=== PATIENT | male | born 1960 | race Caucasian/White ===

== ENCOUNTER 2021-08-14 10:59 | Inpatient (IN) | payer OTHER, MEDICARE ==
[2021-08-14] MEDS ORDERED: HEPARIN SODIUM 1,000 UN/ML (10ML VL) IV PRN (11:09)
[2021-08-14] MEDS ORDERED: fentaNYL (PF) 50 MCG/ML 2 ML AMP IVP STA (11:44)
[2021-08-14] MEDS: HEPARIN SOD,PORK IN 0.45% NACL 25,000 UNIT in 0.45% NACL 1 250ML.BAG IV SCH (11:59)
[2021-08-14 12:04] LABS: Basophils # (A) 0.1 k/uL (0-0.2); Basophils % (A) 1 %; Eosinophils # (A) 0.1 k/uL (0-0.7); Eosinophils % (A) 1 %; HCT 42.4 % (39.0-53.0); HGB 15.2 gm/dL (13.0-17.5); Lymphocytes % (A) 18 %; MCH 32.7 pg (25.0-35.0); MCHC 35.7 g/dL (31.0-37.0); MCV 91.4 fL (80.0-100.0); Mean Platelet Volume 8.8; Monocytes # (A) 0.6 k/uL (0-1.0); Monocytes % (A) 5 %; Neutrophils # (A) 8.3 k/uL (1.3-7.7); Neutrophils % (A) 74 %; Platelet Count 175 k/uL (150-450); RBC 4.64 m/uL (4.30-5.90); RDW 13.8 % (11.5-15.5); WBC 11.3 k/uL (3.8-10.6)
--- NOTE | 2021-08-14 12:11 | ED ---
Chest Pain HPI - General Chief Complaint: Chest Pain Stated Complaint: Chest Pain Time Seen by Provider: 08/14/21 11:00 Source: patient, RN/MD, EMS, RN notes reviewed Mode of arrival: EMS Limitations: no limitations - History of Present Illness Initial Comments: This is a 60-year-old male who presented to [facility] today with complaints of constipation and some atypical chest pain. During a workup EKG was found to be within normal limits however his troponin was elevated. He was diagnosed with a non-ST elevation myocardial infarction. He's had no further chest pain does have a history of chronic back pain. He was sent here for further evaluation and treatment. MD Complaint: chest pain - Related Data Allergies Allergy/AdvReac Type Severity Reaction Status Date / Time codeine Allergy Rash/Hives Verified 08/14/21 11:34 Morpholine Analogues Allergy Rash/Hives Verified 08/14/21 11:33 Review of Systems ROS Statement: Those systems with pertinent positive or pertinent negative responses have been documented in the HPI. ROS Other: All systems not noted in ROS Statement are negative. EKG Findings - EKG Results: EKG: interpreted by ERMD, sinus rhythm, normal axis, normal QRS, normal ST/T, no acute changes (Normal sinus rhythm of 69. Interval was 78 QRS duration 78 QT since QTC 46/[address]-T wave changes) Past Medical History Past Medical History: No Reported History History of Any Multi-Drug Resistant Organisms: None Reported Past Surgical History: Orthopedic Surgery Additional Past Surgical History / Comment(s): Back surgery On 1990 Past Psychological History: Anxiety, Bipolar, Depression, PTSD Smoking Status: Current some day smoker Past Alcohol Use History: Occasional Past Drug Use History: None Reported General Exam - General Exam Comments Initial Comments: This is a well-developed well-nourished awake alert oriented times 3 male Limitations: no limitations General appearance: alert, in no apparent distress Head exam: Present: atraumatic, normocephalic, normal inspection Eye exam: Present: normal appearance, PERRL, EOMI. Absent: scleral icterus, conjunctival injection, periorbital swelling ENT exam: Present: normal exam, mucous membranes moist Neck exam: Present: normal inspection. Absent: tenderness, meningismus, lymphadenopathy Respiratory exam: Present: normal lung sounds bilaterally. Absent: respiratory distress, wheezes, rales, rhonchi, stridor Cardiovascular Exam: Present: regular rate, normal rhythm, normal heart sounds. Absent: systolic murmur, diastolic murmur, rubs, gallop, clicks GI/Abdominal exam: Present: soft, normal bowel sounds. Absent: distended, tend erness, guarding, rebound, rigid Extremities exam: Present: normal inspection, full ROM, normal capillary refill. Absent: tenderness, pedal edema, joint swelling, calf tenderness Back exam: Present: normal inspection Neurological exam: Present: alert, oriented X3, CN II-XII intact Psychiatric exam: Present: normal affect, normal mood Skin exam: Present: warm, dry, intact, normal color. Absent: rash Course Vital Signs 08/14/21 11:05 Temperature 97.4 F L Pulse Rate 74 Respiratory 18 Rate Blood Pressure 140/85 O2 Sat by Pulse 95 Oximetry Chest Pain MDM - MDM Review the materials from the sending facility and did discuss case with Dr. Talbot patient will be admitted for inpatient evaluation and treatment cardiology consultation. Disposition Clinical Impression: Non-ST elevation myocardial infarction (NSTEMI) Disposition: ADMITTED IP TO THIS HOSP Condition: Stable Referrals: Nonstaff,Physician [Primary Care Provider] - 1-2 days
[2021-08-14] MEDS ORDERED: NITROGLYCERIN SL TABS 0.4 MG TAB SUBLINGUAL PRN (12:12)
[2021-08-14 12:44] LABS: Partial Thromboplastin Time 28.3 sec (22.0-30.0); Prothrombin Time 10.3 sec (9.0-12.0)
[2021-08-14] MEDS ORDERED: SUBOXONE PO PRN (14:06)
--- NOTE | 2021-08-14 14:11 | P.HPIM ---
History of Present Illness Patient is a pleasant 60-year-old male was a transfer from outside hospital for possibility of non-ST elevation microinfarction patient had first troponin which is minimally elevated to 0.2 at the other hospital. I do not have any troponin available from this facility yet. EKG here showed sinus rhythm without any acute ST-T wave changes EKG from outside hospital is not available. Patient chest x-ray did not show any pneumonia. Patient actually presented there with constipation patient didn't have any chest pain. Patient admits to epigastric burning sensation about a week ago which was relieved by Tums patient denied any fever chills any cough. Patient admits to some shortness of breath does have smoking history smokes about half a pack a day which she is trying to quit. She and had creatinine of around 1.1 at the hospital REVIEW OF SYSTEMS: CONSTITUTIONAL: No fever, no malaise, no fatigue. HEENT: No recent visual problems or hearing problems. Denied any sore throat. CARDIOVASCULAR: No chest pain, orthopnea, PND, no palpitations, no syncope. PULMONARY: no cough, no hemoptysis. GASTROINTESTINAL: No diarrhea, no nausea, no vomiting, no abdominal pain. NEUROLOGICAL: No headaches, no weakness, no numbness. HEMATOLOGICAL: Denies any bleeding or petechiae. GENITOURINARY: Denies any burning micturition, frequency, or urgency. MUSCULOSKELETAL/RHEUMATOLOGICAL: Denies any joint pain, swelling, or any muscle pain. ENDOCRINE: Denies any polyuria or polydipsia. The rest of the 14-point review of systems is negative. PHYSICAL EXAMINATION: GENERAL: The patient is alert and oriented x3, not in any acute distress. Well developed, well nourished. HEENT: Pupils are round and equally reacting to light. EOMI. No scleral icterus. No conjunctival pallor. Normocephalic, atraumatic. No pharyngeal erythema. No thyromegaly. CARDIOVASCULAR: S1 and S2 present. No murmurs, rubs, or gallops. PULMONARY: Chest is clear to auscultation, no wheezing or crackles. ABDOMEN: Soft, nontender, nondistended, normoactive bowel sounds. No palpable organomegaly. MUSCULOSKELETAL: No joint swelling or deformity. EXTREMITIES: No cyanosis, clubbing, or pedal edema. NEUROLOGICAL: Gross neurological examination did not reveal any focal deficits. SKIN: No rashes. Assessment and plan -Mildly elevated troponin: Awaiting second set of troponin EKG did not show any significant abnormality patient doesn't have any chest pain cardiology was consulted and patient is presently on IV heparin. Patient does have smoking history -Constipation will treat with MiraLAX and senna -Nicotine abuse: Counseling was provided -Depression -obesity DVT prophylaxis: Patient is presently on IV heparin Past Medical History Past Medical History: No Reported History History of Any Multi-Drug Resistant Organisms: None Reported Past Surgical History: Orthopedic Surgery Additional Past Surgical History / Comment(s): Back surgery On 1990 Past Psychological History: Anxiety, Bipolar, Depression, PTSD Smoking Status: Current some day smoker Past Alcohol Use History: Occasional Past Drug Use History: None Reported Medications and Allergies Home Medications Medication Instructions Recorded Confirmed Type Ascorbic Acid [Vitamin C] 1,000 mg PO DAILY 08/14/21 08/14/21 History Buprenorphine HCl/Naloxone HCl 1 tab SL QID PRN 08/14/21 08/14/21 History [Buprenorphine-Nalox 8-2 mg Tab] Cholecalciferol (Vitamin D3) 125 mcg PO MOTUWETH 08/14/21 08/14/21 History [Vitamin D3 (125 MCG = 5,000 IU)] [place]-3 Fatty Acids/Fish Oil [Fish 1 cap PO DAILY 08/14/21 08/14/21 History Oil 1,000 mg Softgel] QUEtiapine [SEROquel] 400 mg PO HS 08/14/21 08/14/21 History Venlafaxine HCl [Effexor XR] 150 mg PO DAILY 08/14/21 08/14/21 History Allergies Allergy/AdvReac Type Severity Reaction Status Date / Time codeine Allergy Rash/Hives/Shortness Verified 08/14/21 13:41 of Breath Morpholine Analogues Allergy Rash/Hives/Shortness Verified 08/14/21 13:41 of Breath Physical Exam Vitals: Vital Signs Temp Pulse Resp BP Pulse Ox 08/14/21 13:13 65 18 157/83 95 08/14/21 11:05 97.4 F L 74 18 140/85 95 Intake and Output 08/13/21 08/14/21 08/14/21 22:59 06:59 14:59 Other: Weight 118.841 kg Results CBC & Chem 7: 08/14/21 11:45 Labs: Abnormal Lab Results - Last 24 Hours (Table) 08/14/21 Range/Units 11:45 WBC 11.3 H (3.8-10.6) k/uL Neutrophils # 8.3 H (1.3-7.7) k/uL
[2021-08-14] MEDS: SODIUM CHLORIDE 0.9% 1,000 ML IV SCH (14:39)
[2021-08-14] MEDS: SENNOSIDES 8.6 MG TAB PO SCH (14:39)
[2021-08-14] MEDS: polyethylene glycoL 3350 17 GM POWD.PACK PO PRN (18:42)
[2021-08-14] MEDS ORDERED: ALPRAZolam 0.25 MG TAB PO STA (19:02)
[2021-08-14] MEDS: NICOTINE 14MG/24HR PATCH TRANSDERM SCH (19:11)
[2021-08-14] MEDS ORDERED: FAMOTIDINE 20 MG/2 ML VIAL IV SCH (21:00)
[2021-08-14] MEDS ORDERED: ALBUTEROL NEBULIZED 2.5 MG/3 ML INHALATION PRN (23:32)
[2021-08-14] MEDS ORDERED: HYDROmorphone 1 MG/ML 1 ML SYRINGE IVP STA (23:32)
[2021-08-14] MEDS: QUEtiapine 200 MG TAB PO SCH (23:37)
[2021-08-15 03:35] LABS: Basophils # (A) 0.1 k/uL (0-0.2); Basophils % (A) 1 %; Eosinophils # (A) 0.3 k/uL (0-0.7); Eosinophils % (A) 4 %; HCT 41.6 % (39.0-53.0); HGB 14.6 gm/dL (13.0-17.5); Lymphocytes # (A) 2.7 k/uL (1.0-4.8); Lymphocytes % (A) 34 %; MCH 32.2 pg (25.0-35.0); MCHC 34.9 g/dL (31.0-37.0); MCV 92.1 fL (80.0-100.0); Mean Platelet Volume 8.1; Monocytes # (A) 0.4 k/uL (0-1.0); Monocytes % (A) 5 %; Neutrophils # (A) 4.3 k/uL (1.3-7.7); Neutrophils % (A) 54 %; Platelet Count 158 k/uL (150-450); RBC 4.52 m/uL (4.30-5.90); RDW 13.6 % (11.5-15.5)
[2021-08-15] MEDS: HEPARIN SOD,PORK IN 0.45% NACL 25,000 UNIT in 0.45% NACL 1 250ML.BAG IV SCH (04:25)
[2021-08-15 05:04] LABS: Prothrombin Time 10.7 sec (9.0-12.0)
[2021-08-15] MEDS ORDERED: NITROGLYCERIN SL TABS 0.4 MG TAB SUBLINGUAL PRN (08:40)
[2021-08-15] MEDS ORDERED: ALPRAZolam 0.5 MG TAB PO PRN (08:40)
[2021-08-15] MEDS ORDERED: ASPIRIN 81 MG PO SCH (09:00)
[2021-08-15] MEDS ORDERED: ASPIRIN 325 MG TAB PO SCH (09:00)
[2021-08-15] MEDS: NITROGLYCERIN OINT 1 INCH/GM PACKET TOPICAL SCH ×3 (09:40→23:45)
[2021-08-15] MEDS: polyethylene glycoL 3350 17 GM POWD.PACK PO PRN (09:40)
[2021-08-15] MEDS: NICOTINE 14MG/24HR PATCH TRANSDERM SCH (09:41)
[2021-08-15] MEDS: VENLAFAXINE HCL ER 150 MG CAP PO SCH (09:41)
[2021-08-15] MEDS: FAMOTIDINE 20 MG TAB PO SCH ×2 (09:41→20:53)
[2021-08-15] MEDS: SENNOSIDES 8.6 MG TAB PO SCH (09:41)
[2021-08-15] MEDS: FUROSEMIDE 10 MG/ML 4 ML VIAL IV SCH ×2 (09:41→20:53)
[2021-08-15 10:13] LABS: Chol/HDL Ratio 4.47 Ratio; HDL Cholesterol 40.5 mg/dL (40.00-60.00); LDL Cholesterol,Calculated 108.1 mg/dL (0.0-131.0); VLDL Calculation 32.4 mg/dL (5.00-40.00)
--- NOTE | 2021-08-15 10:14 | ECHOF ---
Referral Reason:NSTEMI MEASUREMENTS -------- HEIGHT: 162.6 cm WEIGHT: 118.8 kg BP: RVIDd: 3.0 cm (< 3.3) IVSd: 0.9 cm (0.6 - 1.1) LVIDd: 5.2 cm (3.9 - 5.3) LVPWd: 1.4 cm (0.6 - 1.1) IVSs: 1.8 cm LVIDs: 3.5 cm LVPWs: 1.7 cm LA Diam: 3.7 cm (2.7 - 3.8) LAESV Index (A-L): 28.34 ml/m Ao Diam: 3.1 cm (2.0 - 3.7) AV Cusp: 2.0 cm (1.5 - 2.6) LA Diam: 4.1 cm (2.7 - 3.8) MV EXCURSION: 19.436 mm (> 18.000) MV EF SLOPE: 81 mm/s (70 - 150) EPSS: 0.8 cm MV E Campbell: 0.65 m/s MV DecT: 195 ms MV A Campbell: 0.67 m/s MV E/A Ratio: 0.97 RAP: 5.00 mmHg RVSP: 16.07 mmHg FINDINGS -------- Sinus rhythm. Morbid Obesity This was a techncally difficult study with suboptimal views, , Definity utilized for enhancement of images. The left ventricular size is normal. Overall left ventricular systolic function is low-normal with, an EF between 50 - 55 %. The right ventricle is normal in size. The left atrial size is normal. The right atrial size is normal. There is mild aortic valve sclerosis. There is no evidence of aortic regurgitation. Mild mitral regurgitation is present. Mild tricuspid regurgitation present. Right ventricular systolic pressure is normal at < 35 mmHg. The pulmonic valve was not well visualized. CONCLUSIONS -------- 1. Morbid Obesity 2. This was a techncally difficult study with suboptimal views, , Definity utilized for enhancement o f images. 3. The left ventricular size is normal. 4. Overall left ventricular systolic function is low-normal with, an EF between 50 - 55 %. 5. The right ventricle is normal in size. 6. The left atrial size is normal. 7. The right atrial size is normal. 8. There is mild aortic valve sclerosis. 9. Mild mitral regurgitation is present. 10. Mild tricuspid regurgitation present. 11. The pulmonic valve was not well visualized. PARKING CASHIER: Iram Gregg RDCS
--- NOTE | 2021-08-15 12:10 | P.CRDCN ---
History of Present Illness Consult date: 08/15/21 History of present illness: HISTORY OF PRESENT ILLNESS: This is a 60-year-old male with a past medical history significant for COPD and nicotine dependence. Patient also reports a family history of coronary artery disease. 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 We have been asked to see the patient in consultation for abnormal troponins. Patient examined at the bedside. Patient initially presented to the hospital with a chief complaint of constipation. Patient was found to have abnormal troponins. The patient does repair port having some burning in his chest last week. He states the brain sensation would last 2030 minutes and then go away. He states the pain was relieved with aspirin. At the time of examination this morning, he denies any chest pain or pressure. The patient does report shortness of breath when he lays flat in bed. The patient states overnight he woke up in the middle of the night gasping for air. He states this has been going on for the past couple weeks. EKG reveals sinus mechanism with no signs of acute ischemia Laboratory data: WBC 8.0. Hemoglobin 14.6. Platelet count 158. ProBNP 310. T roponin 1.160. 1.570. 0.884. Echocardiogram completed reveals ejection fraction 50-55%, mild mitral regurgitation, and mild tricuspid regurgitation Home cardiac medications include: none REVIEW OF SYSTEMS: At the time of my exam: CONSTITUTIONAL: Denies fever or chills. HEENT: Denies blurred vision, vision changes, or eye pain. Denies hemoptysis CARDIOVASCULAR: Denies chest pain. Reports orthopnea. Reports PND. Denies palpitations RESPIRATORY: shortness of breath. GASTROINTESTINAL: Denies abdominal pain. Denies nausea or vomiting. HEMATOLOGIC: Denies bleeding disorders. GENITOURINARY: Denies any blood in urine. SKIN: Denies pruitis. Denies rash. PHYSICAL EXAM: VITAL SIGNS: Reviewed. GENERAL: Well-developed in no acute distress. HEENT: Head is normocephalic. Pupils are equal, round. Sclerae anicteric. Mucous membranes of the mouth are moist. Neck supple. No JVD or thyromegaly LUNGS: Respirations even and unlabored. Lungs diminished with bibasilar rales HEART: Regular rate and rhythm. S1 and S2 heard. ABDOMEN: Soft. Nondistended. Nontender. EXTREMITIES: Normal range of motion. No clubbing or cyanosis. Peripheral pul ses intact. No lower extremity edema NEUROLOGIC: Awake and alert. Oriented x 3. ASSESSMENT: Constipation Shortness of breath Non-STEMI Acute diastolic congestive heart failure COPD Nicotine dependence Family history of coronary artery disease PLAN: Add aspirin 81 mg daily, Lipitor 80 mg daily, and metoprolol 25 mg twice a day Continue IV heparin Begin IV Lasix 40 mg every 12 hours Add Nitropaste half an inch every 8 hours Monitor kidney function Smoking cessation recommended Nothing by mouth at midnight Patient to undergo cardiac catheterization tomorrow with Dr. Hernandez Further recommendations pending patient's course Nurse practitioner note has been reviewed by physician. Signing provider agrees with the documented findings, assessment, and plan of care. Past Medical History Past Medical History: No Reported History History of Any Multi-Drug Resistant Organisms: None Reported Past Surgical History: Orthopedic Surgery Additional Past Surgical History / Comment(s): Back surgery On 1990 Past Psychological History: Anxiety, Bipolar, Depression, PTSD Smoking Status: Current every day smoker Past Alcohol Use History: Occasional Past Drug Use History: None Reported Medications and Allergies Home Medications Medication Instructions Recorded Confirmed Type Ascorbic Acid [Vitamin C] 1,000 mg PO DAILY 08/14/21 08/14/21 History Buprenorphine HCl/Naloxone HCl 1 tab SL QID PRN 08/14/21 08/14/21 History [Buprenorphine-Nalox 8-2 mg Tab] Cholecalciferol (Vitamin D3) 125 mcg PO MOTUWETH 08/14/21 08/14/21 History [Vitamin D3 (125 MCG = 5,000 IU)] [place]-3 Fatty Acids/Fish Oil [Fish 1 cap PO DAILY 08/14/21 08/14/21 History Oil 1,000 mg Softgel] QUEtiapine [SEROquel] 400 mg PO HS 08/14/21 08/14/21 History Venlafaxine HCl [Effexor XR] 150 mg PO DAILY 08/14/21 08/14/21 History Allergies Allergy/AdvReac Type Severity Reaction Status Date / Time codeine Allergy Rash/Hives/Shortness Verified 08/14/21 13:41 of Breath Morpholine Analogues Allergy Rash/Hives/Shortness Verified 08/14/21 13:41 of Breath Physical Exam Vitals: Vital Signs Temp Pulse Pulse Resp BP BP Pulse Ox 08/15/21 07:53 97.8 F 79 16 103/79 97 08/15/21 04:00 84 18 146/82 96 08/14/21 21:30 97.8 F 83 82 18 155/78 154/84 94 L 08/14/21 20:05 67 18 96 08/14/21 18:00 72 18 155/70 95 08/14/21 17:00 72 18 95 08/14/21 14:40 72 18 95 08/14/21 13:13 65 18 157/83 95 08/14/21 11:05 97.4 F L 74 18 140/85 95 Intake and Output 08/14/21 08/15/21 08/15/21 22:59 06:59 14:59 Intake Total 558 123.963 Balance 558 123.963 Intake: Intake, IV Titration 73 123.963 Amount Heparin Sod,Pork in 0.45% 73 123.963 NaCl 25,000 unit In 0.45 % NaCl 1 250ml.bag @ 8. 415 UNITS/KG/HR 10 mls/hr IV .Q24H [facility] Rx#: [id number] Oral 485 Other: Voiding Method Toilet Toilet Urinal Urinal # Voids 2 Weight 118.841 kg 117 kg Results 08/15/21 03:00 Cardiac Enzymes 08/14/21 08/14/21 Range/Units 14:03 16:52 Troponin I 1.160 H* 1.570 H* (0.000-0.034) ng/mL Coagulation 08/14/21 08/14/21 08/15/21 Range/Units 11:45 16:52 03:00 PT 10.3 10.7 (9.0-12.0) sec APTT 28.3 26.1 (22.0-30.0) sec 08/15/21 Range/Units 03:00 PT (9.0-12.0) sec APTT 34.0 H (22.0-30.0) sec CBC 08/14/21 08/15/21 Range/Units 11:45 03:00 WBC 11.3 H 8.0 (3.8-10.6) k/uL RBC 4.64 4.52 (4.30-5.90) m/uL Hgb 15.2 14.6 (13.0-17.5) gm/dL Hct 42.4 41.6 (39.0-53.0) % Plt Count 175 158 (150-450) k/uL Current Medications Generic Name Dose Route Start Last Admin Trade Name Freq PRN Reason Stop Dose Admin Albuterol Sulfate 2.5 mg 08/14/21 23:32 Albuterol Nebulized 2.5 Mg/3 Ml INHALATION RT-TID PRN Shortness Of Breath Or Wheezing Aspirin 325 mg 08/15/21 09:00 Aspirin 325 Mg Tab PO DAILY [facility] Famotidine 20 mg 08/15/21 09:00 Famotidine 20 Mg Tab PO Q12HR [facility] Heparin Sodium (Porcine) 0 unit 08/14/21 11:09 08/15/21 04:23 Heparin Sodium 1,000 Un/Ml (10ml Vl) IV 4,000 unit PER PROTOCOL PRN Administration Low PTT Protocol Heparin Sodium/Sodium Chloride 250 mls @ 10 mls/hr 08/14/21 11:15 08/15/21 04:25 25,000 unit/ Sodium Chloride IV 14.415 units/kg/hr .Q24H [facility] 17.131 mls/hr Administration Protocol 8.415 UNITS/KG/HR Sodium Chloride 1,000 mls @ 20 mls/hr 08/14/21 12:15 08/14/21 14:39 Saline 0.9% IV 20 mls/hr .Q24H [facility] Administration Nicotine 1 patch 08/14/21 19:15 08/14/21 19:11 Nicotine 14mg/24hr Patch TRANSDERM 1 patch DAILY [facility] Administration Nitroglycerin 0.4 mg 08/14/21 12:12 Nitroglycerin Sl Tabs 0.4 Mg Tab SUBLINGUAL Q5M PRN Chest Pain Suboxone ( 1 tab 08/14/21 14:06 Buprenorphine-Nalox PO 8-2 Mg Tab) QID PRN Pain Polyethylene Glycol 17 gm 08/14/21 14:06 08/14/21 18:42 Polyethylene Glycol 3350 17 Gm Powd.Pack PO 17 gm DAILY PRN Administration Constipation Quetiapine Fumarate 400 mg 08/14/21 21:00 08/14/21 23:37 Quetiapine 200 Mg Tab PO 400 mg HS [facility] Administration Senna 8.6 mg 08/14/21 14:15 08/14/21 14:39 Sennosides 8.6 Mg Tab PO 8.6 mg DAILY [facility] Administration Venlafaxine HCl 150 mg 08/15/21 09:00 Venlafaxine Hcl Er 150 Mg Cap PO DAILY [facility] Intake and Output 08/14/21 08/15/21 08/15/21 22:59 06:59 14:59 Intake Total 558 123.963 Balance 558 123.963 Intake: Intake, IV Titration 73 123.963 Amount Heparin Sod,Pork in 0.45% 73 123.963 NaCl 25,000 unit In 0.45 % NaCl 1 250ml.bag @ 8. 415 UNITS/KG/HR 10 mls/hr IV .Q24H [facility] Rx#: [id number] Oral 485 Other: Voiding Method Toilet Toilet Urinal Urinal # Voids 2 Weight 118.841 kg 117 kg 08/15/21 03:00
[2021-08-15] MEDS: SODIUM CHLORIDE 0.9% 1,000 ML IV SCH (12:11)
[2021-08-15] MEDS: bisacodyL 10 MG SUPP RECTAL STA ×2 (14:01→20:37)
[2021-08-15] MEDS: HYDROmorphone 0.5 MG/0.5 ML SYRINGE IVP PRN ×2 (14:01→20:52)
[2021-08-15 14:41] LABS: Calcium 9.4 mg/dL (8.4-10.2)
[2021-08-15 14:50] LABS: Potassium 5.3 mmol/L (3.5-5.1)
[2021-08-15] MEDS ORDERED: VERAPAMIL 2.5 MG/ML 2 ML AMP ONE (15:19)
[2021-08-15] MEDS ORDERED: LIDOCAINE 1% INJ 10MG/ML (20 ML MDV) ONE (15:19)
--- NOTE | 2021-08-15 15:20 | P.PN ---
Subjective Progress Note Date: 08/15/21 Patient is a pleasant 60-year-old male was a transfer from outside hospital for possibility of non-ST elevation microinfarction patient had first troponin which is minimally elevated to 0.2 at the other hospital. I do not have any troponin available from this facility yet. EKG here showed sinus rhythm without any acute ST-T wave changes EKG from outside hospital is not available. Patient chest x-ray did not show any pneumonia. Patient actually presented there with constipation patient didn't have any chest pain. Patient admits to epigastric burning sensation about a week ago which was relieved by Tums patient denied any fever chills any cough. Patient admits to some shortness of breath does have smoking history smokes about half a pack a day which she is trying to quit. She and had creatinine of around 1.1 at the hospital 08/15/2021 Patient is evaluated today sitting up in the chair. He currently denies any chest pain, chest pressure or palpitations. Has been complaining of some con stipation. He states that he did have a small bowel movement however is requesting additional locations for constipation onset of MiraLAX and. We will order a suppository. Patient does take Suboxone for chronic back pain, he does not have any here, he is requesting pain medication. Troponins were elevated, 1.160, 1.570, 0.84. Patient is scheduled for cardiac catheterization tomorrow. Potassium today is 5.3, CBC is unremarkable. Patient is on heparin drip. Vital signs include blood pressure 115/70, he is afebrile, on room air, and heart rate is 75 normal sinus rhythm. Echocardiogram shows an EF of 50-55% with mild mitral regurgitation and mild tricuspid regurgitation. ROS Constitutional: Denied any fatigue denied any fever. Cardio vascular: denied any chest pain, palpitations Gastrointestinal denied any nausea vomiting, reports constipation Pulmonary: Denied cough, reports shortness of breath with exertion Neurologic denied any new focal deficits All inpatient medications were reviewed and appropriate changes in these medications as dictated in the interval history and assessment and plan. PHYSICAL EXAMINATION: GENERAL: The patient is alert and oriented x3, not in any acute distress. Well developed, well nourished. HEENT: Pupils are round and equally reacting to light. EOMI. No scleral icterus. No conjunctival pallor. Normocephalic, atraumatic. No pharyngeal erythema. No thyromegaly. CARDIOVASCULAR: S1 and S2 present. No murmurs, rubs, or gallops. PULMONARY: Chest is clear to auscultation, no wheezing or crackles. ABDOMEN: Soft, nontender, nondistended, normoactive bowel sounds. No palpable organomegaly. MUSCULOSKELETAL: No joint swelling or deformity. EXTREMITIES: No cyanosis, clubbing, or pedal edema. NEUROLOGICAL: Gross neurological examination did not reveal any focal deficits. SKIN: No rashes. Assessment and plan -Non-STEMI, elevated troponins, heart cath tomorrow on IV heparin -Acute diastolic congestive heart failure, EF 50-55%, on IV lasix -Shortness of breath -Constipation will treat with MiraLAX and senna, one-time suppository -Nicotine abuse: Counseling was provided -Depression -obesity DVT prophylaxis: Patient is presently on IV heparin Cardiac catheterization tomorrow, continue on IV Lasix Objective - Vital Signs Vital signs: Vital Signs Temp 98.4 F 08/15/21 12:11 Pulse 75 08/15/21 12:11 Resp 17 08/15/21 12:11 BP 115/70 08/15/21 12:11 Pulse Ox 97 08/15/21 12:12 Intake & Output 08/14/21 08/15/21 08/15/21 18:59 06:59 18:59 Intake Total 681.963 240 Balance 681.963 240 Weight 118.841 kg 117 kg Intake: Intake, IV Titration 196.963 Amount Heparin Sod,Pork in 0.45% 196.963 NaCl 25,000 unit In 0.45 % NaCl 1 250ml.bag @ 8. 415 UNITS/KG/HR 10 mls/hr IV .Q24H [facility] Rx#: [id number] Oral 485 240 Other: Voiding Method Toilet Toilet Urinal Urinal # Voids 2 - Labs CBC & Chem 7: 08/15/21 03:00 08/15/21 08:47 Labs: Abnormal Lab Results - Last 24 Hours (Table) 08/14/21 08/14/21 08/15/21 Range/Units 14:03 16:52 03:00 APTT (22.0-30.0) sec Troponin I 1.160 H* 1.570 H* (0.000-0.034) ng/mL Triglycerides 162.00 H (0.00-149.00) mg/dL 08/15/21 08/15/21 08/15/21 Range/Units 03:00 08:47 08:47 APTT 34.0 H 57.8 H (22.0-30.0) sec Troponin I 0.884 H* (0.000-0.034) ng/mL Triglycerides (0.00-149.00) mg/dL Assessment and Plan Time with Patient: Greater than 30
[2021-08-15] MEDS ORDERED: IV FLUID CONTINUATION 1,000 ML IV ONE (15:33)
[2021-08-15] MEDS ORDERED: fentaNYL (PF) 50 MCG/ML 2 ML AMP ONE (15:41)
[2021-08-15] MEDS: fentaNYL (PF) 50 MCG/ML 2 ML AMP IVP ONE ×3 (15:54→16:05)
[2021-08-15] MEDS ORDERED: MIDAZOLAM 2 MG/2 ML VIAL IVP ONE ×2 (15:54→16:15)
[2021-08-15] MEDS ORDERED: LIDOCAINE 1% INJ 10MG/ML (20 ML MDV) SQ ONE (15:56)
[2021-08-15] MEDS ORDERED: HEPARIN SODIUM 1,000 UN/ML (10ML VL) ONE (15:59)
[2021-08-15] MEDS ORDERED: VERAPAMIL SYRINGE (5 MG/10 ML) INTRAARTER ONE (16:00)
[2021-08-15] MEDS: HEPARIN SODIUM 1,000 UN/ML (10ML VL) IVP ONE ×3 (16:03→16:30)
[2021-08-15] MEDS ORDERED: PRASUGREL 10 MG TAB ONE (16:08)
[2021-08-15] MEDS ORDERED: PRASUGREL 10 MG TAB PO ONE (16:16)
[2021-08-15] MEDS ORDERED: IOPAMIDOL-370 125ML BTL INJ ONE (16:30)
[2021-08-15] MEDS ORDERED: IOPAMIDOL-370 100ML BTL INJ ONE (16:30)
[2021-08-15] MEDS: ALPRAZolam 0.25 MG TAB PO PRN (19:12)
--- NOTE | 2021-08-15 20:24 | P.PRCINT ---
Percutaneous Coronary Int. - Percutaneous Coronary Intervention Percutaneous Coronary Intervention: PROCEDURES PERFORMED: Left heart catheterization, bilateral coronary angiography, PCI proximal circumflex with a 3.5 x 15mm Xience KASSIE INDICATION: NSTEMI HISTORY: Patient is a pleasant 60-year-old male with a history of tobacco abuse, hypertension, hyperlipidemia who presented with chest pain and was found to have non-STEMI. Heart catheterization was recommended. CONSENT:I have discussed the risks, benefits and alternative therapies for the above-mentioned procedure and for both sedation/analgesia as well as necessary blood product administration, if indicated, as they pertain to this patient. The patient has indicated understanding and acceptance of the risks and procedures discussed. PROCEDURE: After the risks, benefits and alternatives of the above mentioned procedure explained in detail with the patient, informed consent was obtained. Patient was taken to the catheterization lab and prepped and draped in usual fashion. 1% lidocaine was used to anesthetize the right radial artery. A 6- Kazakh sheath was placed in the right radial artery using modified Seldinger technique. Left coronary angiography was performed with a 5-Kazakh JL 3.5 catheter and right coronary angiography was performed with a 5-Kazakh JR5 catheter in various views. A 5-Kazakh FR5 catheter was inserted into the left ventricle and pressure measurements were obtained. The decision was made to perform PCI of the circumflex. A 6-Kazakh CLS 3.0 guide was used to engage the left main. A 0.014 BMW wire was advanced until distal circumflex. A 3.0 x 12 mm balloon was used to predilate the circumflex. Next a 3.5 x 15 mm Xience KASSIE was deployed. Preintervention there was RHIANNA 3 flow and 90% stenosis. Postintervention there was 0% stenosis and RHIANNA-3 flow. The wire was removed and final angiograms were performed. The right radial sheath was removed and a TR band was placed with hemostasis achieved. The patient tolerated the procedure well. Patient was transported back to the post catheterization holding area in stable condition. Conscious Sedation: Patient was monitored under the direct supervision of vision of myself for conscious sedation using Versed and fentanyl for a total duration of 29 minutes HEMODYNAMICS: Ao: 136/73 LVEDP: 110/1, LVEDP 10mmHg SELECTIVE CORONARY ARTERIOGRAPHY: LEFT MAIN: The left main is a large caliber vessel which trifurcates into the LAD, ramus and circumflex. There is no significant stenosis. LEFT ANTERIOR DESCENDING CORONARY ARTERY: LAD is a large caliber vessel which wraps around to the apex. There is a mid LAD 50% stenosis just proximal to a moderate caliber diagonal 1 branch and otherwise has mild luminal irregularities. RAMUS INTERMEDIUS: The ramus is a moderate caliber vessel with mild luminal irregularities. LEFT CIRCUMFLEX CORONARY ARTERY: Left circumflex is a large caliber vessel with a proximal to mid 90% stenosis. RIGHT CORONARY ARTERY: The right coronary artery is a large caliber vessel which gives off a PDA and PLV branch and is the dominant vessel. There is a proximal 30% RCA stenosis and a mid 20% RCA stenosis. FINAL IMPRESSION: 1. CAD as described above with 90% circumflex stenosis, 50% mid LAD stenosis and otherwise mild disease 2. S/p PCI proximal to mid circumflex with a 3.5 x 15mm Xience KASSIE 3. Normal left sided filling pressures PLAN: 1. Aggressive risk factor modification per most recent ACC/AHA guidelines. 2. Continue dual antiplatelets for 12 months 3. Would treat LAD medically and does not appear angiographically significant.
[2021-08-15] MEDS ORDERED: RX INFO: IV CONTRAST WAS GIVEN 1 EACH MISC MISCELLANE PRN (20:42)
[2021-08-15] MEDS ORDERED: ZOLPIDEM 5 MG TAB PO PRN (20:42)
[2021-08-15] MEDS ORDERED: ATROPINE SULFATE 0.1 MG/ML 10ML SYRINGE IV PRN (20:42)
[2021-08-15] MEDS ORDERED: MAG HYDROX/AL HYDROX/SIMETH 30 ML CUP PO PRN (20:42)
[2021-08-15] MEDS ORDERED: SODIUM CHLORIDE 0.9% 1,000 ML IV SCH (20:45)
[2021-08-15] MEDS: SODIUM CHLORIDE 0.9% 1,000 ML in EMPTY BAG 1 BAG IV SCH ×2 (20:52→23:46)
[2021-08-15] MEDS: ATORVASTATIN 80 MG TAB PO SCH (20:53)
[2021-08-15] MEDS: METOPROLOL TARTRATE 25 MG TAB PO SCH (20:53)
[2021-08-15] MEDS: QUEtiapine 200 MG TAB PO SCH (20:54)
[2021-08-16] MEDS ORDERED: ASPIRIN 325 MG TAB PO ONE (07:00)
[2021-08-16] MEDS ORDERED: HEPARIN SODIUM,PORCINE 10,000 UNIT in SODIUM CHLORIDE 0.9% 1,000 ML IRRIGATION PRN (07:00)
[2021-08-16] MEDS ORDERED: ATORVASTATIN 80 MG TAB PO ONE (07:00)
[2021-08-16] MEDS ORDERED: HEPARIN SODIUM,PORCINE 2,500 UNIT in SODIUM CHLORIDE 0.9% 250 ML IRRIGATION PRN (07:00)
[2021-08-16] MEDS ORDERED: PRASUGREL 10 MG TAB PO SCH (09:00)
[2021-08-16] MEDS ORDERED: ASPIRIN 81 MG PO SCH (09:00)
[2021-08-16 09:46] VITALS: TEMP 98.5
[2021-08-16] MEDS: NICOTINE 14MG/24HR PATCH TRANSDERM SCH (09:51)
[2021-08-16] MEDS: FAMOTIDINE 20 MG TAB PO SCH (09:51)
[2021-08-16] MEDS: NITROGLYCERIN OINT 1 INCH/GM PACKET TOPICAL SCH ×2 (09:51→15:27)
[2021-08-16] MEDS: HYDROmorphone 0.5 MG/0.5 ML SYRINGE IVP PRN (09:52)
[2021-08-16] MEDS: FUROSEMIDE 10 MG/ML 4 ML VIAL IV SCH (09:58)
[2021-08-16] MEDS: SENNOSIDES 8.6 MG TAB PO SCH (09:59)
[2021-08-16] MEDS: METOPROLOL TARTRATE 25 MG TAB PO SCH ×2 (09:59→18:50)
[2021-08-16] MEDS: VENLAFAXINE HCL ER 150 MG CAP PO SCH (09:59)
[2021-08-16 11:10] LABS: Calcium 9.2 mg/dL (8.4-10.2); Potassium 4.3 mmol/L (3.5-5.1)
[2021-08-16 12:10] VITALS: BMI 35.6
[2021-08-16] MEDS: SODIUM CHLORIDE 0.9% 1,000 ML IV SCH (12:29)
[2021-08-16] MEDS: HEPARIN SOD,PORK IN 0.45% NACL 25,000 UNIT in 0.45% NACL 1 250ML.BAG IV SCH (12:29)
[2021-08-16] MEDS: ALPRAZolam 0.25 MG TAB PO PRN (13:23)
[2021-08-16] MEDS: SODIUM CHLORIDE 0.9% 1,000 ML in EMPTY BAG 1 BAG IV SCH (15:27)
[2021-08-16 15:37] VITALS: BP 131/78; PULSE 85; RESP 18
--- NOTE | 2021-08-16 17:58 | P.PN ---
Subjective This is a 60-year-old male with a past medical history significant for COPD and nicotine dependence. Patient also reports a family history of coronary artery disease. Patient does not follow with a hospital clerk.. We have been asked to see the patient in consultation for abnormal troponins. Patient examined at the bedside. Patient initially presented to the hospital with a chief complaint of constipation. Patient was found to have abnormal troponins. The patient does repair port having some burning in his chest last week. He states the brain sensation would last 2030 minutes and then go away. He states the pain was relieved with aspirin. At the time of examination this morning, he denies any chest pain or pressure. The patient does report shortness of breath when he lays flat in bed. The patient states overnight he woke up in the middle of the night gasping for air. He states this has been going on for the past couple weeks. EKG reveals sinus mechanism with no signs of acute ischemia Laboratory data: WBC 8.0. Hemoglobin 14.6. Platelet count 158. ProBNP 310. Troponin 1.160. 1.570. 0.884. Echocardiogram completed reveals ejection fraction 50-55%, mild mitral regurgitation, and mild tricuspid regurgitation Home cardiac medications include: none 08/16 Patient seen and examined. Patient denies any chest pain or pressure. He has been doing well since heart catheterization last night with PCI of the circumflex. He is anxious to go home. REVIEW OF SYSTEMS: At the time of my exam: CONSTITUTIONAL: Denies fever or chills. HEENT: Denies blurred vision, vision changes, or eye pain. Denies hemoptysis CARDIOVASCULAR: Denies chest pain. Reports orthopnea. Reports PND. Denies palpitations RESPIRATORY: shortness of breath. GASTROINTESTINAL: Denies abdominal pain. Denies nausea or vomiting. HEMATOLOGIC: Denies bleeding disorders. GENITOURINARY: Denies any blood in urine. SKIN: Denies pruitis. Denies rash. PHYSICAL EXAM: VITAL SIGNS: Reviewed. GENERAL: Well-developed in no acute distress. HEENT: Head is normocephalic. Pupils are equal, round. Sclerae anicteric. Mucous membranes of the mouth are moist. Neck supple. No JVD or thyromegaly LUNGS: Respirations even and unlabored. Lungs diminished with bibasilar rales HEART: Regular rate and rhythm. S1 and S2 heard. ABDOMEN: Soft. Nondistended. Nontender. EXTREMITIES: Normal range of motion. No clubbing or cyanosis. Peripheral pulses intact. No lower extremity edema NEUROLOGIC: Awake and alert. Oriented x 3. ASSESSMENT: Constipation Shortness of breath Non-STEMI Acute diastolic congestive heart failure COPD Nicotine dependence Family history of coronary artery disease PLAN: Continue with current medical regimen. Dual antiplatelets for 12 months. Decrease Lasix to 40 mg daily. Patient appears stable for discharge home. Outpatient follow-up with in one week. Objective - Vital Signs Vital signs: Vital Signs Temp 98.5 F 08/16/21 08:00 Pulse 85 08/16/21 15:36 Resp 18 08/16/21 15:36 BP 131/78 08/16/21 15:36 Pulse Ox 96 08/16/21 15:36 Intake & Output 08/15/21 08/16/21 08/16/21 18:59 06:59 18:59 Intake Total 955.738 280 Output Total 2150 3 Balance 955.738 -2150 277 Weight 116 kg 116 kg Intake: IV 425 Intake, IV Titration 172.738 Amount Heparin Sod,Pork in 0.45% 172.738 NaCl 25,000 unit In 0.45 % NaCl 1 250ml.bag @ 8. 415 UNITS/KG/HR 10 mls/hr IV .Q24H [facility] Rx#: [id number] Oral 358 280 Output: Urine 2150 3 Other: Voiding Method Toilet Toilet Urinal Urinal # Voids 3 3 - Labs CBC & Chem 7: 08/15/21 03:00 08/16/21 10:44 Labs: Abnormal Lab Results - Last 24 Hours (Table) 08/16/21 Range/Units 10:44 Sodium 136 L (137-145) mmol/L Carbon Dioxide 19 L (22-30) mmol/L Glucose 126 H (74-99) mg/dL
--- NOTE | 2021-08-16 18:14 | P.DS ---
Providers Date of admission: 08/14/21 12:12 Expected date of discharge: 08/16/21 Attending physician: Jose Talbot Consults: 08/14/21 12:12 Consult Physician Urgent Consulting Provider: Ortiz Hernandez Consult Reason/Comments: N STEMI Do you want consulting provider notified?: Yes 08/15/21 20:44 Consult Physician Routine Consulting Provider: [facility] Consult Reason/Comments: Post Interventional patient Do you want consulting provider notified?: Already Contacted Primary care physician: Physician Nonstaff Hospital Course: Mr. Ferreira is a 60-year-old male with a past medical history of COPD, nicotine dependence, family history of coronary artery disease admitted to the hospital with a chief complaint of chest pain. Patient had abnormal elevation of troponins and so cardiology was consulted. Eventually patient underwent cardiac catheterization by Dr. Hernandez. Cardiac catheterization report FINAL IMPRESSION: 1. CAD as described above with 90% circumflex stenosis, 50% mid LAD stenosis and otherwise mild disease 2. S/p PCI proximal to mid circumflex with a 3.5 x 15mm Xience KASSIE 3. Normal left sided filling pressures So patient had stenting of LAD and eventually started on dual antiplatelet therapy. Patient was also advised with aggressive risk factor modification strategies- like smoking cessation, lipid management, heart healthy diet as per ACC/AHA guidelines. Post cath patient had a normal recovery with no complications. He was seen by Dr. Hernandez today and cleared for discharge. Patient is very good to her home. Discussed with him in detail the importance of being compliant with his medications especially dual antiplatelet therapy, diet and especially smoking cessation. Vital Signs Temp 98.5 F 08/16/21 08:00 Pulse 66 08/16/21 11:36 Resp 16 08/16/21 11:36 BP 114/73 08/16/21 11:36 Pulse Ox 95 08/16/21 11:36 PHYSICAL EXAMINATION: GENERAL: The patient is alert and oriented x3, not in any acute distress. Well developed, well nourished. HEENT: Pupils are round and equally reacting to light. EOMI. No scleral icterus. No conjunctival pallor. Normocephalic, atraumatic. No pharyngeal erythema. No thyromegaly. CARDIOVASCULAR: S1 and S2 present. No murmurs, rubs, or gallops. PULMONARY: Chest is clear to auscultation, no wheezing or crackles. ABDOMEN: Soft, nontender, nondistended, normoactive bowel sounds. No palpable organomegaly. MUSCULOSKELETAL: No joint swelling or deformity. EXTREMITIES: No cyanosis, clubbing, or pedal edema. NEUROLOGICAL: Gross neurological examination did not reveal any focal deficits. SKIN: No rashes. DISCHARGE DIAGNOSIS Non-ST elevation AR Status post stenting Constipation Nicotine dependence Depression Obesity with BMI of 35.7 FOLLOW-up patient is advised to follow-up with cardiology in 1-2 weeks. More than 35 minutes spent towards the discharge of the patient. Patient Condition at Discharge: Stable Plan - Discharge Summary New Discharge Prescriptions: New Aspirin 81 mg PO DAILY 30 Days #30 tab Prasugrel [Effient] 10 mg PO DAILY 30 Days #30 tab Furosemide [Lasix] 40 mg PO DAILY 30 Days #30 tablet Atorvastatin [Lipitor] 80 mg PO HS 30 Days #30 tab Metoprolol Tartrate [Lopressor] 25 mg PO BID 30 Days #60 tab Nitroglycerin Sl Tabs [Nitrostat] 0.4 mg SUBLINGUAL Q5M PRN #20 tab PRN Reason: Chest Pain Continue Cholecalciferol (Vitamin D3) [Vitamin D3 (125 MCG = 5,000 IU)] 125 mcg PO MOTUWETH [place]-3 Fatty Acids/Fish Oil [Fish Oil 1,000 mg Softgel] 1 cap PO DAILY Buprenorphine HCl/Naloxone HCl [Buprenorphine-Nalox 8-2 mg Tab] 1 tab SL QID PRN PRN Reason: Pain Ascorbic Acid [Vitamin C] 1,000 mg PO DAILY Venlafaxine HCl [Effexor XR] 150 mg PO DAILY QUEtiapine [SEROquel] 400 mg PO HS Discharge Medication List Ascorbic Acid [Vitamin C] 1,000 mg PO DAILY 08/14/21 [History] Buprenorphine HCl/Naloxone HCl [Buprenorphine-Nalox 8-2 mg Tab] 1 tab SL QID PRN 08/14/21 [History] Cholecalciferol (Vitamin D3) [Vitamin D3 (125 MCG = 5,000 IU)] 125 mcg PO MOTUWETH 08/14/21 [History] [place]-3 Fatty Acids/Fish Oil [Fish Oil 1,000 mg Softgel] 1 cap PO DAILY 08/14/21 [History] QUEtiapine [SEROquel] 400 mg PO HS 08/14/21 [History] Venlafaxine HCl [Effexor XR] 150 mg PO DAILY 08/14/21 [History] Aspirin 81 mg PO DAILY 30 Days #30 tab 08/16/21 [Rx] Atorvastatin [Lipitor] 80 mg PO HS 30 Days #30 tab 08/16/21 [Rx] Furosemide [Lasix] 40 mg PO DAILY 30 Days #30 tablet 08/16/21 [Rx] Metoprolol Tartrate [Lopressor] 25 mg PO BID 30 Days #60 tab 08/16/21 [Rx] Nitroglycerin Sl Tabs [Nitrostat] 0.4 mg SUBLINGUAL Q5M PRN #20 tab 08/16/21 [Rx] Prasugrel [Effient] 10 mg PO DAILY 30 Days #30 tab 08/16/21 [Rx] Follow up Appointment(s)/Referral(s): Nonstaff,Physician [Primary Care Provider] - 1-2 days
[2021-08-16] MEDS: ATORVASTATIN 80 MG TAB PO SCH (18:51)
== END 2021-08-16 18:51 | disposition home or self-care (01) | DRG 246 ==
LOC: EC 10:59 → 3SCARD 12:12
PROVIDERS: ADMIT Internal Medicine; ATTEND Internal Medicine
PROC: B2151ZZ Fluoroscopy of Left Heart using Low Osmolar Contrast (ICD-10-PCS; 2021-08-15)
PROC: 027034Z Dilation of Coronary Artery, One Artery with Drug-eluting Intraluminal Device, Percutaneous Approach (ICD-10-PCS; principal; 2021-08-15 07:30)
PROC: 4A023N7 Measurement of Cardiac Sampling and Pressure, Left Heart, Percutaneous Approach (ICD-10-PCS; 2021-08-15 07:30)
DX: I21.4 Non-ST elevation (NSTEMI) myocardial infarction (principal); I50.31 Acute diastolic (congestive) heart failure; I25.10 Atherosclerotic heart disease of native coronary artery without angina pectoris; K59.00 Constipation, unspecified; I08.1 Rheumatic disorders of both mitral and tricuspid valves; K21.9 Gastro-esophageal reflux disease without esophagitis; J44.9 Chronic obstructive pulmonary disease, unspecified; Z20.822 Contact with and (suspected) exposure to COVID-19; E66.9 Obesity, unspecified; Z68.35 Body mass index [BMI] 35.0-35.9, adult; F17.210 Nicotine dependence, cigarettes, uncomplicated; F31.9 Bipolar disorder, unspecified; F43.10 Post-traumatic stress disorder, unspecified; G89.29 Other chronic pain; Z88.5 Allergy status to narcotic agent; Z79.899 Other long term (current) drug therapy; Z71.6 Tobacco abuse counseling
CPT/HCPCS: 36415; 80048; 80061; 83880; 84484; 85025; 85610; 85730; 93005; 93306; 93458; 94640; 94760; 96374; 99285

== ENCOUNTER → 2021-11-27 | Outpatient (CLI) | payer OTHER | END | disposition home or self-care (01) | LOC: RADMRIMAIN 10-17 10:03 | PROVIDERS: ATTEND Family Medicine | DX: Z53.9 Procedure and treatment not carried out, unspecified reason (principal) ==